=== PATIENT | male | born 1965 | race Caucasian/White ===

== ENCOUNTER 2019-01-17 07:09 | Outpatient (CLI) | payer OTHER ==
[~2019-01-17 07:09] MED LIST: TESSALON200 MG PO; TUSSI PRES-B L120 M1 PO; TUSSIONEX PENNKI5 ML PO
== END 2019-01-17 07:15 | disposition home or self-care (01) ==
LOC: SONOGRAMA 07:09 → MAMO-SONO 07:45
DX: R74.0 Nonspecific elevation of levels of transaminase and lactic acid dehydrogenase [LDH] (principal)

== ENCOUNTER 2020-03-20 12:31 | Emergency (ER) | payer OTHER ==
[~2020-03-20] VITALS: Ht 172.7 cm; Wt 81.6 kg
[2020-03-20] MEDS ORDERED: ZANTAC25 MG/1 ML (12:37)
[2020-03-20] MEDS ORDERED: KETO10TA2 PO (13:46)
[2020-03-20] MEDS ORDERED: NORFLEX100MG PO (13:46)
== END 2020-03-20 14:01 | disposition home or self-care (01) ==
LOC: ER 12:31
DX: M54.5 Low back pain (principal)

== ENCOUNTER 2020-04-18 09:04 | Emergency (ER) | payer OTHER ==
[~2020-04-18] VITALS: Ht 167.6 cm; Wt 82.1 kg
[~2020-04-18 09:04] MED LIST changes: +KETO10TA2 PO; +NORFLEX100MG PO; +ZANTAC25 MG/1 ML
[2020-04-18] MEDS ORDERED: LEVSIN/SL0.125 MG SL (15:17)
[2020-04-18] MEDS ORDERED: OXYCONTIN10 M1 PO (15:17)
[2020-04-18] MEDS ORDERED: KETO10TA2 PO (15:17)
[2020-04-18] MEDS ORDERED: PEPCID AC20 MG PO (15:17)
== END 2020-04-18 15:59 | disposition home or self-care (01) ==
LOC: ER 09:04
DX: K80.20 Calculus of gallbladder without cholecystitis without obstruction (principal); R10.11 Right upper quadrant pain; Z03.818 Encounter for observation for suspected exposure to other biological agents ruled out